=== PATIENT | female | born 2000 | race Two or more races ===

== ENCOUNTER 2024-04-21 09:06 | Outpatient (AMB) | payer OTHER, MEDICAID, SELFPAY ==
--- NOTE | 2024-04-21 09:09 | MHC.PC.OV ---
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 Intake Note: New patient visit Prosthetic Assistant Required: No Allergies No Known Allergies Allergy (Verified 04/21/24 09:15) Tobacco use date assessed: 04/21/24 Dental Screening Dental Screen Date: 04/21/24 Did you have a dental visit in the last 12 months?: Yes Did you have a dental problem in the last 6 months where you did not have access to dental care?: No Was dental information given to patient?: No 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 She does report a significant past medical history of iron-deficiency anemia and was previously on supplements. She says that she was last seen by a commercial administrator about a year ago for a physical. She does come in today with a list of concerns. 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 She has trialed OCPs without improvement of a cycle. She recently stopped any control and states within the last year has continued to have irregular menses. Her last menstrual cycle was 2 weeks ago. Previous evaluation with a egg processor included hormone testing and ultrasounds, which suggested an abnormal hormone balance and low egg production (per pt), but she was reassured that the condition was not concerning. [facility] but would like a 2nd opinion. She expressed concern about potential polycystic ovary syndrome (PCOS) due to symptoms of irregular menstruation and weight gain on control. She also reported recurrent yeast infections occurring three times over a recent period without clear triggers. The patient expressed concerns about eczema in her ears due to intermittent itchiness. She has a history of itchy ears that sometimes appear dry and flaky and suspects a connection to her allergies. she states that she has not tried anything for this besides scratching her ear. Denies any sores or drainage. No decreased hearing. No ear pain. In addition, she experiences intermittent hand pain and itching, raising concerns due to her mother's history of arthritis. She states at times it does feel like her knuckles are bit swollen. She denies any overlying erythema. No trauma. This has been going on for the last couple years. She states that she has to take her rings off because her fingers will swell at times. She feels like she has a crack it but is unable to crack her fingers. It is an ache that is intermittently present. She says that she debated not even mentioning it because she thinks that it might be somewhat normal and also related to overuse. Lastly, the patient has been experiencing persistent insomnia, characterized by difficulty falling asleep And at times staying asleep. She says that she is a light sleeper and does not feel like she gets very restful sleep but has not tried anything for this. She was previously prescribed medications through her commercial administrator but did not like the idea of taking this. She did try an phda-obz-sercafb sleep aid which she found mildly effective but did not take it consistently. She does report poor sleep hygiene. States that she is often on her phone. She does not have any difficulty waking up in the morning. She is able to work full-time without any difficulty. Health Maintenance - Discussed management of insomnia, including sleep hygiene recommendations such as maintaining a dark and cool sleep environment, avoiding Screens before bedtime, and considering sound machines to improve sleep quality. - Recommended lifestyle modifications to address insomnia, including exercise, and exposure to natural light, especially in the afternoon. Social History Review of Systems Physical Exam General: Well developed, well nourished, in no acute distress. Appears stated age. Head: Normocephalic, atraumatic. Eyes: Pupils are equal, round and reactive to light and accommodation. Conjunctivae are clear. Vision grossly normal. Ears: Tympanic membranes clear bilaterally, dry flaking skin noted of the external ear. Canals are clear. Nose: Patent, without discharge. Mouth: There are no ulcers or lesions noted. No inflammation, no post nasal drip, no plaques nor exudates. Neck: Supple, no adenopathy or thyromegaly. Thyroid feels good, no nodules or lymph node swelling noted. Lungs: Clear to auscultation bilaterally. No rales, rhonchi or wheeze noted. Good air flow in all downey. Heart: Regular rate and rhythm. No murmurs, click, rubs or gallops are noted. Abdomen: Bowel sounds present in all quadrants. The abdomen is soft, nontender, with no masses or organomegaly noted. No hernias are noted. Patient reports occasional weird feelings, possibly related to intestinal movement. Musculoskeletal: Joints are nontender, without swelling, redness, or effusions. Range of motion is observed to be normal. Patient reports occasional hand pain and itching, with a family history of arthritis. X-ray and arthritis labs recommended. Pulses: Peripheral pulses are equal and palpable bilaterally. Extremities: No clubbing, cyanosis nor edema is noted. Neurologic: Gait and station normal. Cranial Nerves 2-12 intact. Motor strength grossly symmetrical and intact. No sensory loss. Balance normal. Skin: No rashes, ulcers, or lesions noted. Turgor is good. Skin color is good. Hair and nails are without abnormalities. Psych: Normal eye contact, affect and mood appropriate, and normal interactions. Patient is alert and appropriate to context. Reports difficulty sleeping, possibly related to sleep hygiene and phone use. Recommendations for sleep improvement provided. Results Plan - Conduct comprehensive blood work including CBC, liver function, kidney function, cholesterol, blood sugar, electrolytes, vitamins, thyroid function, , and iron levels. - [facility] for irregular menstruation and further assessment of hormone levels. - Recommend probiotics for recurrent yeast infections. We also discussed hygiene. - Suggest flbt-fhw-txfrhjg hydrocortisone cream As needed for itchy ears with suspected eczema. I also advised her to only try that for a few days and then use a moisturizer. - Discussed x-ray and arthritis labs for hand symptoms. - Emphasize the importance of improved sleep hygiene for insomnia. Patient was informed and verbally consented to the use of an ambient scribe for clinic note documentation during this visit. Discussion Notes I Referred her to [facility]. I reinforced the importance of managing her sleep environment and habits to improve insomnia, suggesting both behavioral changes and natural supplements. For her recurrent yeast infections, we discussed the possibility of introducing probiotics into her routine to restore normal vaginal suzan. We also considered eczema management for her ear symptoms using rhsw-twu-ftdfwco treatments. All potential management plans and recommendations were discussed thoroughly, emphasizing lifestyle modifications before medicinal intervention where appropriate. Additionally, she was advised to pursue lab work and x-rays based on current symptoms to rule out any underlying conditions. Patient Instructions - Schedule an appointment with [facility] for a comprehensive evaluation of menstrual irregularities. - Use probiotics to assist in reducing recurrent yeast infections. - Apply hydrocortisone cream sparingly to the external ear for itchiness and dryness, avoiding deep application. - Practice recommended sleep strategies, including using a sound machine, maintaining a dark and cool sleep environment. - Get the prescribed blood work done in a fasting state at a convenient lab location. - Monitor hand symptoms; x-ray ordered [facility] Surgical History (Updated 04/21/24 @ 09:17 by Elizabet Ruiz CMA) H/O removal of cyst Family History (Updated 04/21/24 @ 09:17 by Elizabet Ruiz CMA) Unknown No problems noted. 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 1. Little interest or pleasure in doing things: several days 2. Feeling down, depressed, or hopeless: several days 3. Trouble falling or staying asleep, or sleeping too much: several days 4. Feeling tired or having little energy: several days 5. Poor appetite or overeating: not at all 6. Feeling bad about yourself - or that you are a failure or have let yourself or your family down: not at all 7. Trouble concentrating on things, such as reading the newspaper or watching television: several days 8. Moving or speaking so slowly that other people could have noticed. Or the opposite - being so fidgety or restless that you have been moving around a lot more than usual: not at all 9. Thoughts that you would be better off or of hurting yourself in some way: not at all Total score: 5 Depression Screening Interpretation: Negative Depression Screening Done: Yes 28968 - PHQ-9 Billing: Yes Source: Developed by Drs. Jason Quarles, Mary Ellen Oates, Grant Sheppard and colleagues, with an educational prisca from [employer]. Thrive Questionnaire I am a: Patient What is your living situation today?: I have a steady place to live Within the past 12 months, did the food you bought not last and you didn't have the money to get more?: Never true Within the past 12 months, did you worry whether your food would run out before you got money to buy more?: Never true Do you have trouble paying for medicines?: I choose not to answer this question Do you have trouble getting transportation to medical appointments?: No Do you have trouble paying your heating and electricity bill?: No Do you have trouble taking care of your child, family member or friend?: No Do you have trouble with day-to-day activities such as bathing, preparing meals, shopping, managing finances, etc.?: No Are you currently unemployed and looking for a job?: No Are you interested in more education?: Yes Please select the resources that you would like help with: None Currently or been in a relationship where the following occur: No concerns reported THRIVE Score: 0 AUDIT C Alcohol Use Questionnaire (AUDIT-C) 1. How often do you have a drink containing alcohol?: Monthly or less 2. How many drinks containing alcohol do you have on a typical day when you are drinking?: 1 or 2 3. How often do you have six or more drinks on one occasion?: Never Total Score: 1 Score Reviewed/Action Taken: Yes PRESTON-7 AMB Questionnaire PRESTON-7 Feeling nervous, anxious, or on edge: 1 = Several days Not being able to stop or control worryin = Not at all Worrying too much about different things: 1 = Several days Trouble relaxin = Several days Being so restless that it is hard to sit still: 1 = Several days Becoming easily annoyed or irritable: 0 = Not at all Feeling afraid as if something awful might happen: 0 = Not at all Total PRESTON-7 score (0-4 normal; 5-9 mild; 10-14 moderate; 15-21 severe): 4 Source: Developed by Drs. Jason Quarles, Mary Ellen Oates, Grant Sheppard and colleagues, with an educational prisca from [employer]. PRESTON-7 Assessment Billing PRESTON-7 Assessment Tool: PRESTON-7 Assessment 83682 Physical exam (Primary Care) Vital Signs: Last Vital Signs Pulse 87 04/21/24 09:18 BP 108/70 04/21/24 09:18 Pulse Ox 97 04/21/24 09:18 Oxygen Delivery Method Room Air 04/21/24 09:18 BMI result Body Mass Index 26.6 Tobacco/Smoking Status: Tobacco use Status Tobacco use date assessed 04/21/24 04/21/24 09:24 Patient Tobacco Use Status Never used Tobacco 04/21/24 09:24 e-Cigarette/Vaping Use Never Used 04/21/24 09:24 PHQ-9: PHQ-9 Score PHQ-9: Total score 5 04/21/24 09:09 Depression Screening Interpretation: Negative Currently or been in a relationship where the following occur: No concerns reported Coding Level of Care Code New Pt Prev Care 18-39yr(07370 Diagnoses Routine general medical examination at a health care facility Z00.00 Irregular menses N92.6 GALO (iron deficiency anemia) D50.9 Bilateral hand pain M79.641; M79.642 Insomnia G47.00 Additional Codes PHQ-9 - 02032 - PHQ-9 Billing: Yes ([id number]) PRESTON-7 Assessment Billing - PRESTON-7 Assessment Tool: PRESTON-7 Assessment 53891 ([id number]) Assessment & Plan Assessment & Plan (1) Routine general medical examination at a health care facility: Code(s): Z00.00 - Encounter for general adult medical examination without abnormal findings (2) Irregular menses: Code(s): N92.6 - Irregular menstruation, unspecified Category: Medical (3) GALO (iron deficiency anemia): Code(s): D50.9 - Iron deficiency anemia, unspecified Category: Medical (4) Bilateral hand pain: Code(s): M79.641 - Pain in right hand; M79.642 - Pain in left hand Category: Medical (5) Insomnia: Code(s): G47.00 - Insomnia, unspecified Category: Medical Plan . Orders: Orders Comprehensive [place]. Panel Fast Today D50.9 - Iron deficiency anemia, unspecified, M79.641 - Pain in right hand, M79.642 - Pain in left hand, N92.6 - Irregular menstruation, unspecified, Z00.00 - Encounter for general adult medical examination without abnormal findings Lipid Panel Today D50.9 - Iron deficiency anemia, unspecified, M79.641 - Pain in right hand, M79.642 - Pain in left hand, N92.6 - Irregular menstruation, unspecified, Z00.00 - Encounter for general adult medical examination without abnormal findings TSH reflex Free T4 Today D50.9 - Iron deficiency anemia, unspecified, M79.641 - Pain in right hand, M79.642 - Pain in left hand, N92.6 - Irregular menstruation, unspecified, Z00.00 - Encounter for general adult medical examination without abnormal findings Magnesium Today D50.9 - Iron deficiency anemia, unspecified, M79.641 - Pain in right hand, M79.642 - Pain in left hand, N92.6 - Irregular menstruation, unspecified, Z00.00 - Encounter for general adult medical examination without abnormal findings Ferritin Today D50.9 - Iron deficiency anemia, unspecified, M79.641 - Pain in right hand, M79.642 - Pain in left hand, N92.6 - Irregular menstruation, unspecified, Z00.00 - Encounter for general adult medical examination without abnormal findings IRON PROFILE Today D50.9 - Iron deficiency anemia, unspecified, M79.641 - Pain in right hand, M79.642 - Pain in left hand, N92.6 - Irregular menstruation, unspecified, Z00.00 - Encounter for general adult medical examination without abnormal findings Rheumatoid Factor Today M79.641 - Pain in right hand, M79.642 - Pain in left hand Lyme IgG/IgM w/reflex to WB Today M79.641 - Pain in right hand, M79.642 - Pain in left hand Complete Blood Count Auto Diff Today D50.9 - Iron deficiency anemia, unspecified, M79.641 - Pain in right hand, M79.642 - Pain in left hand, N92.6 - Irregular menstruation, unspecified, Z00.00 - Encounter for general adult medical examination without abnormal findings Vitamin B12 and Folate Today D50.9 - Iron deficiency anemia, unspecified, M79.641 - Pain in right hand, M79.642 - Pain in left hand, N92.6 - Irregular menstruation, unspecified, Z00.00 - Encounter for general adult medical examination without abnormal findings Erythrocyte Sedimentation Rate Today M79.641 - Pain in right hand, M79.642 - Pain in left hand YESICA Reflex Titer and Pattern Today M79.641 - Pain in right hand, M79.642 - Pain in left hand XR Hand Bilat min 3v Today M79.641 - Pain in right hand, M79.642 - Pain in left hand Referrals BOBJ DEVELOPER Referral N92.6 - Irregular menstruation, unspecified, Z01.419 - Encounter for gynecological examination (general) (routine) without abnormal findings
[2024-04-21 09:18] VITALS: BP 108/70; PULSE 87; O2SAT 97; BMI 26.6
== END 2024-04-21 09:53 | disposition home or self-care (01) ==
PROVIDERS: PCP Physician Assistant; Visit Provider Physician Assistant
DX: Z00.00 Encounter for general adult medical examination without abnormal findings (principal); N92.6 Irregular menstruation, unspecified; D50.9 Iron deficiency anemia, unspecified; M79.641 Pain in right hand; M79.642 Pain in left hand; G47.00 Insomnia, unspecified

== ENCOUNTER → 2024-04-21 09:06 | Outpatient (BNVA) | payer OTHER, MEDICAID, SELFPAY | PROVIDERS: PCP Physician Assistant; Visit Provider Physician Assistant | DX: Z00.00 Encounter for general adult medical examination without abnormal findings (principal); N92.6 Irregular menstruation, unspecified; D50.9 Iron deficiency anemia, unspecified; M79.641 Pain in right hand; M79.642 Pain in left hand; G47.00 Insomnia, unspecified | CPT/HCPCS: 96127 ==

== ENCOUNTER 2024-04-21 10:12 | Outpatient (REF) | payer OTHER, MEDICAID, SELFPAY ==
[2024-04-21 11:33] LABS: MANUAL DIFF FLAG NO
[2024-04-21 11:41] LABS: Basophils Percent Auto 0.6 % (0-2); Eosinophils Absolute Auto 0.3 X10*3/uL (0.0-0.4); Eosinophils Percent Auto 4.8 % (0-4); Hematocrit 41.3 % (37.0-47.0); Hemoglobin 14.1 g/dl (12.0-16.0); Imm Gran Abs Auto 0.02 X10*3/uL (0.00-0.03); Imm Gran Pct Auto 0.3 % (0.0-0.4); Lymphocytes Absolute Auto 2.1 X10*3/uL (1.2-4.9); Lymphocytes Percent Auto 30.8 % (20-40); Mean Corpuscular HGB Conc 34.1 g/dl (31.0-35.0); Mean Corpuscular Hemoglobin 30.3 pg (27.0-33.0); Mean Corpuscular Volume 88.6 fL (80.0-98.0); Mean Platelet Volume 11.3 fL (9.4-12.3); Monocytes Absolute Auto 0.5 X10*3/uL (0.1-1.2); Monocytes Percent Auto 6.7 % (2-11); Neutrophils Absolute Auto 3.8 x10*3/uL (2.0-8.3); Neutrophils Percent Auto 56.8 % (45-73); Platelet Count 336 X10*3/uL (160-400); Red Blood Count 4.66 X10*6/uL (4.20-5.50); Red Cell Distribution Width 11.8 % (11.0-16.0); White Blood Count 6.7 X10*3/uL (4.8-10.8)
[2024-04-21 12:16] LABS: Alanine Aminotransferase 20 U/L (0-31); Albumin Level 4.7 g/dL (3.5-5.0); Alkaline Phosphatase 68 U/L (39-117); Anion Gap 12 (12-20); Aspartate Amino Transferase 19 U/L (5-31); Blood Urea Nitrogen 13 mg/dL (9-16); Calcium 9.6 mg/dL (8.4-10.2); Carbon Dioxide 26 mmol/L (22-29); Chloride 108 mmol/L (96-108); Cholesterol 191 mg/dL (<200); Estimated Glomerular Filt Rate > 60; Glucose Fasting 84 mg/dL (60-99); HDL Cholesterol 46 mg/dL (>40); Iron 88 mcg/dL (30-160); LDL Cholesterol Calculated 128 mg/dL (<100); Magnesium 2.3 mg/dL (1.6-2.6); Percent Iron Saturation 30 % (15-50); Potassium 3.8 mmol/L (3.3-5.1); Sodium 142 mmol/L (135-145); Total Iron Binding Capacity 294 mcg/dL (228-428); Total Protein 8.2 g/dL (6.5-8.0); Triglycerides 85 mg/dL (<150); Unsaturated Iron Binding 206 ug/dL
[2024-04-21 12:17] LABS: Erythrocyte Sedimentation Rate 5 MM/HR (0-20)
[2024-04-21 12:35] LABS: Ferritin 85 ng/mL (10-122); Rheumatoid Factor < 13.0 IU/mL (<15.0); TSH reflex Free T4 0.95 uIU/mL (0.32-4.0)
[2024-04-21 13:02] LABS: Folate 10.1 ng/mL (> or = 4.0); Vitamin B12 461 pg/mL (200-900)
[2024-04-22 11:13] LABS: Lyme Abs Screen <0.90 index
[2024-04-26 13:40] LABS: Anti Nuclear Antibody Screen NEGATIVE (NEGATIVE)
== END 2024-04-21 10:13 | disposition home or self-care (01) ==
LOC: HO.WFDLDS 10:12
PROVIDERS: Visit Provider Physician Assistant
DX: Z00.00 Encounter for general adult medical examination without abnormal findings (principal); N92.6 Irregular menstruation, unspecified; D50.9 Iron deficiency anemia, unspecified; M79.641 Pain in right hand; M79.642 Pain in left hand
CPT/HCPCS: 36415; 80053; 80061; 82607; 82728; 82746; 83540; 83735; 84443; 85025; 85652; 86038; 86431; 86617; 86618